=== PATIENT | male | born 1960 | race Caucasian/White ===

== ENCOUNTER 2018-05-02 04:06 | Emergency (ER) | payer OTHER ==
[~2018-05-02] VITALS: Ht 175.3 cm; Wt 85.6 kg
[2018-05-02 04:15] VITALS: Ht 175.3 cm; Wt 85.6 kg
--- NOTE | 2018-05-02 08:04 | ERD ---
ER Documentation Chief Complaint Chief Complaint CP, ADAMSON, NUMBNESS, TINGLING, SHAKINESS X 3 DAYS HPI 57-year-old man with multiple complaints including sharp nonexertional nonradiating chest pain lasting for a few seconds, shortness of breath, paresthesias, headache, palpitations, "shakiness" times 3 days. Patient recently adopted his baby granddaughter and so him and his have been experiencing stress. Patient denies suicidal homicidal ideation, no fevers or chills, no cough, no calf or leg swelling ROS All systems reviewed and are negative except as per history of present illness. Medications Home Meds Active Scripts Alprazolam* (Xanax*) 0.5 Mg Tab, 0.5 MG PO TID PRN for ANXIETY, #12 TAB Prov:ANA ZAMORA MD 05/02/18 Ibuprofen* (Motrin*) 600 Mg Tab, 600 MG PO Q8 PRN for PAIN AND/OR INFLAMMATION, #30 TAB Prov:ANA ZAMORA MD 05/02/18 Allergies Allergies: Coded Allergies: No Known Allergy (Unverified , 05/02/18) FmHx Family History: No diabetes Physical Exam Vitals Vital Signs Date Temp Pulse Resp B/P (MAP) Pulse Ox O2 O2 Flow FiO2 Time Delivery Rate 05/02/18 98.3 70 16 109/74 100 Room Air 10:02 (86) 05/02/18 70 16 114/73 100 Room Air 08:42 (87) 05/02/18 97.9 99 18 138/90 99 04:15 (106) Physical Exam GENERAL: Well-developed, well-nourished, anxious, afebrile HEENT: Moist mucous membranes, pink conjunctiva, no cervical spine tenderness or step-off deformities, no goiter, no jaundice or icterus, extraocular movements intact without pain. No submandibular induration, and no pharyngeal erythema NEURO: Alert and oriented 3, cranial nerves II through XII intact bilaterally, pupils equal round reactive to light, no focal deficits or facial asymmetry, sensation intact distally Strength 5/5 in upper and lower extremities bilaterally CARDIAC: Regular rate and rhythm, no murmurs rubs or gallops LUNGS: Clear bilaterally no wheezing crackles or stridor ABDOMEN: Soft nontender, no guarding, no rigidity, no rebound, no psoas sign no obturator sign. Normoactive bowel sounds SKIN: Warm and dry to touch, no abrasions, contusions, or hematomas, no lacerations, no ecchymosis, no target lesions, and without ulcers EXTREMITIES: No clubbing cyanosis or edema, calves are bilaterally symmetrical, no Homans sign, no popliteal cord sign. Distal pulses equal and bilateral PSYCH: Anxious Result Diagram: 05/02/18 0820 05/02/18 0820 Results 24 hrs Laboratory Tests Test 05/02/18 08:20 White Blood Count 5.9 10^3/ul Red Blood Count 5.14 10^6/ul Hemoglobin 14.8 g/dl Hematocrit 45.4 % Mean Corpuscular Volume 88.3 fl Mean Corpuscular Hemoglobin 28.8 pg Mean Corpuscular Hemoglobin Concent 32.6 g/dl Red Cell Distribution Width 13.4 % Platelet Count 170 10^3/UL Mean Platelet Volume 11.5 fl Immature Granulocytes % 0.200 % Neutrophils % 54.5 % Lymphocytes % 33.1 % Monocytes % 6.3 % Eosinophils % 4.7 % Basophils % 1.2 % Nucleated Red Blood Cells % 0.0 /100WBC Immature Granulocytes # 0.010 10^3/ul Neutrophils # 3.2 10^3/ul Lymphocytes # 2.0 10^3/ul Monocytes # 0.4 10^3/ul Eosinophils # 0.3 10^3/ul Basophils # 0.1 10^3/ul Nucleated Red Blood Cells # 0.0 10^3/ul Sodium Level 143 mmol/L Potassium Level 4.2 mmol/L Chloride Level 103 mmol/L Carbon Dioxide Level 31 mmol/L Anion Gap 9 Blood Urea Nitrogen 13 mg/dl Creatinine 0.73 mg/dl Est Glomerular Filtrat Rate mL/min > 60 mL/min Glucose Level 106 mg/dl Calcium Level 9.7 mg/dl Total Bilirubin 0.4 mg/dl Direct Bilirubin 0.00 mg/dl Indirect Bilirubin 0.4 mg/dl Aspartate Amino Transf (AST/SGOT) 35 IU/L Alanine Aminotransferase (ALT/SGPT) 39 IU/L Alkaline Phosphatase 82 IU/L Troponin I < 0.012 ng/ml Total Protein 8.3 g/dl Albumin 4.7 g/dl Globulin 3.60 g/dl Albumin/Globulin Ratio 1.30 Lipase 98 U/L Current Medications Medications Dose Sig/Pily Start Time Status Last (Trade) Ordered Route PRN Stop Time Admin Dose Reason Admin Sodium 500 ml @ Q1H STAT 05/02/18 DC 05/02/18 Chloride 500 mls/hr IV 08:14 05/02/18 08:31 09:13 Ondansetron 4 mg ONCE STAT 05/02/18 DC 05/02/18 HCl (Zofran IV 08:14 05/02/18 08:31 Inj) 08:15 Ketorolac 15 mg ONCE STAT 05/02/18 DC 05/02/18 Tromethamine IV 08:14 05/02/18 08:31 (Toradol) 08:15 Lorazepam 0.5 mg ONCE ONCE 05/02/18 DC 05/02/18 (Ativan) PO 08:30 05/02/18 08:31 08:31 Procedures/MDM IV line was established patient was placed on hall monitor rhythm strip revealed a sinus rhythm at about 80 bpm with upright P and T waves. Patient was afebrile EKG performed, read by me revealed a normal sinus rhythm 81 bpm, normal axis, narrow QRS complex, no concerning ST elevations or depressions noted I administered 1 L normal saline IV, Toradol 15 mg IV, Zofran 4 mg IV, lorazepam 0.5 mg p.o. x1 CBC and electrolytes are normal, liver function tests were normal, troponin was negative Differential diagnoses considered, included but not limited to acute coronary syndrome, pulmonary embolism, aortic dissection, abdominal aortic aneurysm, sepsis, stroke, meningitis, encephalitis, pneumonia, appendicitis, cholecystitis, bowel obstruction, pyelonephritis, nephrolithiasis, cystitis, as well as metabolic, hematologic, and electrolyte abnormalities. As well as abscess, cellulitis, fractures, and dislocations. Patient feels much better at this time, and vital signs are normal, symptoms have improved. I did give strict instructions to return to the ED if symptoms continue or worsen, patient will otherwise follow-up with primary care physician. Patient understood instructions and agreed to plan. Disclaimer: Inadvertent spelling and grammatical errors are likely due to EHR/dictation software use and do not reflect on the overall quality of patient care. Also, please note that the electronic time recorded on this note does not necessarily reflect the actual time of the patient encounter. Departure Diagnosis: Primary Impression: Chest pain Chest pain type: unspecified Qualified Codes: R07.9 - Chest pain, un specified Additional Impression: Acute anxiety Condition: Good ANA ZAMORA MD May 02, 2018 08:04
[2018-05-02] MEDS ORDERED: SOD CHLORIDE 0.9% 500 ML IV STA (08:14)
[2018-05-02] MEDS ORDERED: ONDANSETRON 4 MG INJ IV STA (08:14)
[2018-05-02] MEDS ORDERED: KETOROLAC 15 MG INJ IV STA (08:14)
[2018-05-02] MEDS ORDERED: LORAZEPAM 0.5 MG TAB PO ONE (08:30)
[2018-05-02] MEDS ORDERED: IBUP-1542 PO (09:09)
[2018-05-02] MEDS ORDERED: ALPR0.5T PO (09:09)
[2018-05-02 10:02] VITALS: BP 109/74; PULSE 70; RESP 16
== END 2018-05-02 10:05 | disposition home or self-care (01) ==
LOC: E/R 04:06
DX: R07.9 Chest pain, unspecified (principal); F41.9 Anxiety disorder, unspecified
CPT/HCPCS: 71045; 80053; 83690; 84484; 85025; J1885; J2405; J7040; 36415; 93005; 96374; 96375

== ENCOUNTER 2018-05-12 23:28 | Emergency (ER) | payer OTHER ==
[~2018-05-12] VITALS: Wt 86.0 kg
[~2018-05-12 23:28] MED LIST: ALPR0.5T PO; IBUP-1542 PO
[2018-05-13] MEDS ORDERED: LORAZEPAM 2 MG INJ IM ONE (03:30)
[2018-05-13] MEDS ORDERED: CYAN500T46 PO (05:02)
[2018-05-13] MEDS ORDERED: OMEG-135 PO (05:02)
[2018-05-13 05:25] VITALS: BP 103/74; PULSE 78; RESP 11
[2018-05-13] MEDS ORDERED: LORA1TAB PO (05:36)
--- NOTE | 2018-05-13 05:36 | ERD ---
ER Documentation Chief Complaint Chief Complaint DIZZINESS X'S 10 DAYS, SEEN HERE FOR SAME ON MAY 02. HPI Is a 57-year-old male who complains of dizziness on and off for the past 10 days. He says been feeling palpitations numbness around his mouth and numbness in his fingertips when he gets dizzy. He also feels very anxious. Said he was seen here once before but was not treated with anything was told that he was "normal". Denies any fevers chills nausea vomiting. Denies any other current complaints. ROS All systems reviewed and are negative except as per history of present illness. Medications Home Meds Reported Medications Cyanocobalamin* (Vitamin B12*) 500 Mcg Tab, 1000 MCG PO DAILY, TAB 05/13/18 [place]-3 Fatty Acids/Fish Oil (Fish Oil 1,000 mg Capsule) 1 Each Capsule, 1 EACH PO DAILY, CAP 05/13/18 Discontinued Scripts Alprazolam* (Xanax*) 0.5 Mg Tab, 0.5 MG PO TID PRN for ANXIETY, #12 TAB Prov:ANA ZAMORA MD 05/02/18 Ibuprofen* (Motrin*) 600 Mg Tab, 600 MG PO Q8 PRN for PAIN AND/OR INFLAMMATION, #30 TAB Prov:ANA ZAMORA MD 05/02/18 Allergies Allergies: Coded Allergies: Penicillins (Unverified Allergy, Severe, RASHES, 05/13/18) PMhx/Soc History of Surgery: Yes (L testicular surgery) Anesthesia Reaction: No Hx Neurological Disorder: No Hx Respiratory Disorders: No Hx Cardiac Disorders: No Hx Psychiatric Problems: Yes (anxiety) Hx Miscellaneous Medical Probl: No Hx Alcohol Use: No Hx Substance Use: No Hx Tobacco Use: No Smoking Status: Never smoker Physical Exam Vitals Vital Signs Date Temp Pulse Resp B/P (MAP) Pulse Ox O2 O2 Flow FiO2 Time Delivery Rate 05/13/18 78 11 103/74 99 Room Air 05:25 (84) 05/13/18 72 13 130/88 100 Room Air 03:30 (102) 05/12/18 97.1 77 18 141/84 100 23:34 (103) Physical Exam Const: No acute distress Head: Atraumatic Eyes: Normal Conjunctiva ENT: Normal External Ears, Nose and Mouth. Neck: Full range of motion. No meningismus. Resp: Clear to auscultation bilaterally Cardio: Regular rate and rhythm, no murmurs Abd: Soft, non tender, non distended. Normal bowel sounds Skin: No petechiae or rashes Back: No midline or flank tenderness Ext: No cyanosis, or edema Neur: Awake and alert Psych: Normal Mood and Affect Results 24 hrs Current Medications Medications Dose Sig/Pily Start Time Status Last (Trade) Ordered Route PRN Stop Time Admin Dose Reason Admin Lorazepam 1 mg ONCE ONCE 05/13/18 DC 05/13/18 (Ativan) IM 03:30 04:13 05/13/18 03:31 Procedures/MDM Emergency department course: Patient seen about by triage nurse. Placed in bed from evaluation. I sepsis and head. Given Ativan intramuscularly. Serial exams show the patient felt much better post Ativan administration. Medical decision make: This very pleasant patient comes in with multiple complaints that seem to all stem from anxiety. All symptomology resolved with administration of Ativan. I feel like panic attack is likely the cause of the patient's symptomology. At this point he stable for trial of outpatient management. His EMR was reviewed and his workup from last time was reviewed showing a negative cardiac workup. At this point the patient is stable for outpatient management. Will be discharged discharge home with short course of benzodiazepines. He has been advised however to return immediately for any return of symptomology via 911. Departure Diagnosis: Primary Impression: Acute anxiety Condition: Stable ALBINO GREGG May 13, 2018 05:35
== END 2018-05-13 05:57 | disposition home or self-care (01) ==
LOC: E/R 23:28
DX: F41.9 Anxiety disorder, unspecified (principal); R40.2142 Coma scale, eyes open, spontaneous, at arrival to emergency department; R40.2252 Coma scale, best verbal response, oriented, at arrival to emergency department; R40.2362 Coma scale, best motor response, obeys commands, at arrival to emergency department
CPT/HCPCS: 70450; 96372; 99285; J2060

== ENCOUNTER 2018-05-28 04:10 | Emergency (ER) | payer OTHER ==
[~2018-05-28] VITALS: Ht 175.3 cm; Wt 85.4 kg
[~2018-05-28 04:10] MED LIST changes: -ALPR0.5T PO; +CYAN500T46 PO; -IBUP-1542 PO; +LORA1TAB PO; +OMEG-135 PO
[2018-05-28 04:28] VITALS: BP 137/85; PULSE 74; RESP 18; Ht 175.3 cm; Wt 85.4 kg
[2018-05-28] MEDS ORDERED: FLUT9.9S NASAL (08:12)
[2018-05-28] MEDS ORDERED: MED4DP PO (08:12)
[2018-05-28] MEDS ORDERED: LEVO750T25 PO (08:12)
[2018-05-28] MEDS ORDERED: PSEU-79 PO (08:12)
--- NOTE | 2018-05-28 08:17 | ERD ---
ER Documentation Chief Complaint Chief Complaint states can't sleep, anxious, dizziness x 2 days HPI 57-year-old male presenting with nasal congestion and inability to breathe. He states he is having difficulty sleeping secondary to all the congestion. He states is been going on for the last 2 days. He has been seen here 3 times for similar symptoms. Denies any fevers. Denies chest pain or shortness of breath. Denies headaches or vomiting. Denies other medical problems. Allergy to penicillin. Surgical history is testicular surgery. Social history denies ROS All systems reviewed and are negative except as per history of present illness. Medications Home Meds Active Scripts Methylprednisolone* (Medrol* DOSE PACK) 4 Mg/Dose-Pack Tab.ds.pk, 4 MG PO . DIRECTED, #1 PACKET Prov:LIGIA JOYNER PA-C 05/28/18 Fluticasone Propionate (Flonase Allergy Relief) 9.9 Ml [place].susp, 1 SPRAY NASAL DAILY, #1 BOTTLE TO EACH NOSTRIL Prov:LIGIA JOYNER PA-C 05/28/18 Pseudoephedrine Hcl* (Suphedrin*) 30 Mg Tablet, 30 MG PO Q6 PRN for CONGESTION, #30 TAB Prov:LIGIA JOYNER PA-C 05/28/18 Levofloxacin* (Levaquin*) 750 Mg Tablet, 750 MG PO DAILY for 5 Days, TAB Prov:LIGIA JOYNRE PA-C 05/28/18 Lorazepam* (Lorazepam*) 1 Mg Tablet, 1 MG PO Q8H PRN for ANXIETY, #10 TAB Prov:ALBINO GREGG 05/13/18 Reported Medications Cyanocobalamin* (Vitamin B12*) 500 Mcg Tab, 1000 MCG PO DAILY, TAB 05/13/18 [place]-3 Fatty Acids/Fish Oil (Fish Oil 1,000 mg Capsule) 1 Each Capsule, 1 EACH PO DAILY, CAP 05/13/18 Allergies Allergies: Coded Allergies: Penicillins (Unverified Allergy, Severe, RASHES, 05/13/18) PMhx/Soc History of Surgery: Yes (L testicular surgery) Anesthesia Reaction: No Hx Neurological Disorder: No Hx Respiratory Disorders: No Hx Cardiac Disorders: No Hx Psychiatric Problems: Yes (anxiety) Hx Miscellaneous Medical Probl: No Hx Alcohol Use: No Hx Substance Use: No Hx Tobacco Use: No Smoking Status: Never smoker FmHx Family History: No diabetes, No coronary disease, No other Physical Exam Vitals Vital Signs Date Temp Pulse Resp B/P (MAP) Pulse Ox O2 O2 Flow FiO2 Time Delivery Rate 05/28/18 97.2 74 18 137/85 98 04:28 (102) Physical Exam GENERAL: The patient is well-appearing, well-nourished, in no acute distress HEENT: Atraumatic. Conjunctivae are pink. Pupils equal, round, and reactive to light. There is no scleral icterus. Tympanic membranes clear bilaterally. Oropharynx clear. Sinus pressure NECK: C-spine is soft and supple. There is no meningismus. There is no cervical lymphadenopathy. CHEST: Clear to auscultation bilaterally. There are no rales, wheezes or rhonchi. HEART: Regular rate and rhythm. No murmurs, clicks, rubs or gallops. Result Diagram: 05/28/18 0655 05/28/18 0655 Results 24 hrs Laboratory Tests Test 05/28/18 06:55 White Blood Count 6.3 10^3/ul Red Blood Count 5.43 10^6/ul Hemoglobin 15.6 g/dl Hematocrit 47.5 % Mean Corpuscular Volume 87.5 fl Mean Corpuscular Hemoglobin 28.7 pg Mean Corpuscular Hemoglobin Concent 32.8 g/dl Red Cell Distribution Width 13.5 % Platelet Count 183 10^3/UL Mean Platelet Volume 11.8 fl Immature Granulocytes % 0.200 % Neutrophils % 45.2 % Lymphocytes % 33.5 % Monocytes % 6.5 % Eosinophils % 12.5 % Basophils % 2.1 % Nucleated Red Blood Cells % 0.0 /100WBC Immature Granulocytes # 0.010 10^3/ul Neutrophils # 2.9 10^3/ul Lymphocytes # 2.1 10^3/ul Monocytes # 0.4 10^3/ul Eosinophils # 0.8 10^3/ul Basophils # 0.1 10^3/ul Nucleated Red Blood Cells # 0.0 10^3/ul Urine Color STRAW Urine Clarity CLEAR Urine pH 7.0 Urine Specific [place] 1.005 Urine Ketones NEGATIVE mg/dL Urine Nitrite NEGATIVE mg/dL Urine Bilirubin NEGATIVE mg/dL Urine Urobilinogen NEGATIVE mg/dL Urine Leukocyte Esterase NEGATIVE [place]/ul Urine Hemoglobin NEGATIVE mg/dL Urine Glucose NEGATIVE mg/dL Urine Total Protein NEGATIVE mg/dl Sodium Level 146 mmol/L Potassium Level 4.1 mmol/L Chloride Level 101 mmol/L Carbon Dioxide Level 31 mmol/L Anion Gap 14 Blood Urea Nitrogen 13 mg/dl Creatinine 0.74 mg/dl Est Glomerular Filtrat Rate mL/min > 60 mL/min Glucose Level 116 mg/dl Calcium Level 10.0 mg/dl Total Bilirubin 0.6 mg/dl Direct Bilirubin 0.00 mg/dl Indirect Bilirubin 0.6 mg/dl Aspartate Amino Transf (AST/SGOT) 34 IU/L Alanine Aminotransferase (ALT/SGPT) 35 IU/L Alkaline Phosphatase 84 IU/L Total Protein 8.9 g/dl Albumin 4.9 g/dl Globulin 4.00 g/dl Albumin/Globulin Ratio 1.22 Procedures/MDM DIAGNOSTIC IMAGING REPORT Patient: SHARON LÓPEZ : 1960 Age: 57 Sex: M MR #: [id number] DOS: 05/28/18 0632 Ordering MD: MIGUEL JOYNER PA-C Location: [facility] Room/Bed: PROCEDURE: CT Brain without contrast. CLINICAL INDICATION: Dizziness, shortness of breath TECHNIQUE: A CT of the brain was performed on a multi-slice CT scanner utilizing axial imaging from the skull base through the vertex without IV contrast. Multiplanar reformatted images were made. Images were reviewed on a PACS workstation. The CTDIvol is 38.97 mGy and the DLP is 634.2 mGycm. One or more of the following dose reduction techniques were used: Automated exposure control. Adjustment of the mA and/or kV according to patient's size. Use of iterative reconstruction technique. DICOM images are available. COMPARISON: 05/13/2018 FINDINGS: The sulcal gyral pattern is unremarkable without evidence of effacement. The daniel-white matter differentiation is intact. No masses, edema or shift is identified. There are no intraparenchymal or extraaxial fluid collections. Mild mucosal thickening is again seen in the maxillary sinuses and ethmoid air cells bilaterally. There is a small amount of mucosal thickening in the sphenoid sinuses bilaterally. The skull base and calvarium are intact. IMPRESSION: 1. Mild mucosal thickening is again seen in the maxillary sinuses and ethmoid air cells bilaterally. There is a small amount of mucosal thickening in the sphenoid sinuses bilaterally. 2. Otherwise, no significant intracranial abnormalities are identified. DIAGNOSTIC IMAGING REPORT Patient: SHARON LÓPEZ : 1960 Age: 57 Sex: M MR #: [id number] DOS: 05/28/18 0632 Ordering MD: MIGUEL JOYNER PA-C Location: [facility] Room/Bed: PROCEDURE: CT facial bones CLINICAL INDICATION: Pain without history of trauma TECHNIQUE: A CT of the facial bones was performed on a GE 64-slice CT scanner utilizing high-resolution axial images. Sagittal, coronal, and multiplanar reformatted images were made. Additionally, 3-D reformatted images were made. The CTDIvol is 29.34 mGy and the DLP is 596.87 mGy-cm. DICOM images are available. One of the following 3 does reduction techniques were used during this CT examination: 1) Automated exposure control 2) Adjustment of the mA +/- kV according to patient size or 3) Use of iterative reconstruction technique COMPARISON: CT brain 05/28/2018 and 05/13/2018 FINDINGS: The visualized scalp and calvarium are normal. The bilateral orbits are normal. The jacques of the orbit are intact and no evidence for acute fractures are present. The bilateral globes, lacrimal glands, intraconal and extraconal spaces are normal. The bilateral paranasal sinuses demonstrate chronic mucosal thickening in the bilateral frontal, ethmoid, maxillary, and sphenoid sinuses without acute air fluid levels noted. The bilateral frontal recesses, sphenoethmoidal recesses are patent. Mucosal narrowing is noted of the bilateral maxillary ostiomeatal complexes. Bilateral carlotta bullosa is present. The bilateral mastoid air cells and middle ear cavities are clear. The bilateral internal auditory canals and otic capsules are normal. The sinusoidal deviation of the nasal septum is noted superiorly to the right 3 mm and inferiorly to the left 3 mm. The posterior nasopharynx is symmetric and patent. The maxilla, mandible, bilateral nasal bones, bilateral zygoma and pterygoid plates are intact. No acute fractures are present. No evidence for dislocation is noted. Mild flattening of the bilateral mandibular condyles are noted compatible with mild degenerative change. The mandibular canal is patent. The imaged portions of the spine demonstrate straightening of the normal cer vical lordosis with degenerative changes of the atlanto-axial articulation and degenerative enthesopathy from the image C3-C5 levels. Moderate disc space height loss and early vacuum formation is noted at the C3-4 and C4-5 levels. No evidence for lytic or blastic lesions are noted. IMPRESSION: 1. No acute fractures or dislocations. 2. Chronic pansinusitis without acute air fluid levels 3. Bilateral maxillary sinus ostiomeatal complex narrowing and bilateral carlotta bullosa 4. Straightening of the normal cervical lordosis with degenerative changes as noted MDM: 57-year-old male presenting with sinus congestion. Patient will be treated with decongestants and antibiotic. Patient is also given steroids. I have low suspicion of intracranial hemorrhage or neuro deficit. I have low suspicion for sepsis. Patient is discharged with stricter precautions and told to follow-up with primary care within 1-2 days for close evaluation. Patient is told symptoms change or worsen to return immediately to the ER. All questions answered at discharge Departure Diagnosis: Primary Impression: Sinusitis Condition: Stable Patient Instructions: Sinusitis, Abx Tx Referrals: [facility] YOU HAVE RECEIVED A MEDICAL SCREENING EXAM AND THE RESULTS INDICATE THAT YOU DO NOT HAVE A CONDITION THAT REQUIRES URGENT TREATMENT IN THE EMERGENCY DEPARTMENT. FURTHER EVALUATION AND TREATMENT OF YOUR CONDITION CAN WAIT UNTIL YOU ARE SEEN IN YOUR DOCTORS OFFICE WITHIN THE NEXT 1-2 DAYS. IT IS YOUR RESPONSIBILITY TO MAKE AN APPOINTMENT FOR FOLOW-UP CARE. IF YOU HAVE A PRIMARY DOCTOR --you should call your primary doctor and schedule an appointment IF YOU DO NOT HAVE A PRIMARY DOCTOR YOU CAN CALL OUR PHYSICIAN REFERRAL HOTLINE AT IF YOU CAN NOT AFFORD TO SEE A PHYSICIAN YOU CAN CHOSE FROM THE FOLLOWING [facility] [address] [facility]. [facility] [address] [facility] [address] [facility]. [facility] [address] [facility]. [facility] [address] [facility]. [facility]. [address] Additional Instructions: FOLLOW UP WITH YOUR PRIMARY CARE PHYSICIAN TOMORROW.Return to this facility if you are not improving as expected. LIGIA JOYNER PA-C May 28, 2018 08:17
== END 2018-05-28 08:35 | disposition home or self-care (01) ==
LOC: FTE 04:10
DX: J32.9 Chronic sinusitis, unspecified (principal)
CPT/HCPCS: 70450; 70486; 80053; 81003; 85025